=== PATIENT | female | born 2000 | race American Indian/Alaskan Native ===

== ENCOUNTER 2021-11-06 14:18 | Observation (INO) | payer MEDICAID ==
[2021-11-06] MEDS ORDERED: SODIUM CHLORIDE 0.9% 500 ML 500 ML IV ONE ×2 (14:26→16:05)
[2021-11-06] MEDS ORDERED: diphenhydrAMINE 25 MG CAP PO PRN (16:05)
[2021-11-06] MEDS ORDERED: ACETAMINOPHEN 325 MG TAB PO PRN (16:05)
[2021-11-06] MEDS ORDERED: DOCUSATE SODIUM 100 MG CAP PO PRN (16:05)
[2021-11-06] MEDS ORDERED: ONDANSETRON 4 MG/2 ML INJ IV PRN (16:05)
[2021-11-06 19:04] LABS: Hematocrit 21.3 % (30.3-42.9); Hemoglobin 6.5 gm/dl (10.1-14.3)
[2021-11-06] MEDS ORDERED: SODIUM CHLORIDE 0.9% 500 ML 500 ML ONE (21:05)
[2021-11-06] MEDS: PRENATAL VIT27-FE FUMARATE-FOLIC ACID VIT TAB PO SCH (22:38)
--- NOTE | 2021-11-06 22:43 | History and Physical Report ---
History of Present Illness Date of examination: 11/06/21 Date of admission: 11/06/21 16:05 Chief complaint: Patient to receive a blood transfusion for severe anemia. History of present illness: 21 yo, @ 30.1wks, initiated care with [facility] at 11 wks gestation. During routine 3rd trimester screening , patient was found to be severely anemic. She was then referred to hematology for further assessment and treatment and it was recommended patient receive a blood transfusion initially. Labs: O+, antibody negative; H/H: 5.9/20.2 as of 10/25/21. Past History Past Medical History: no pertinent history Past Surgical History: no surgical history Family/Genetic History: none Social history: no significant social history - Obstetrical History Expected Date of Delivery: 01/14/22 Actual Gestation: 30 Week(s) 1 Day(s) : 1 Para: 0 Hx # Term Pregnancies: 0 Number of Pregnancies: 0 Spontaneous Abortions: 0 Induced : 0 Number of Living Children: 0 Medications and Allergies Allergies Allergy/AdvReac Type Severity Reaction Status Date / Time No Known Allergies Allergy Verified 02/09/18 01:33 Home Medications Medication Instructions Recorded Confirmed Last Taken Type Docusate Sodium [Colace] 100 mg PO QDAY #30 capsule 02/12/18 Unknown Rx Ferrous Sulfate [Iron 325 MG] 325 mg PO TID #90 tablet 02/12/18 Unknown Rx medroxyPROGESTERone ACETATE 10 mg PO QDAY #10 tablet 02/12/18 Unknown Rx [Provera] Active Meds: Active Medications Acetaminophen (Acetaminophen 325 Mg Tab) 650 mg PO Q4H PRN PRN Reason: Pain MILD(1-3)/Fever >100.5/KRAMER Last Admin: 11/06/21 21:48 Dose: 650 mg Diphenhydramine HCl (Diphenhydramine 25 Mg Cap) 25 mg PO Q6H PRN PRN Reason: Itching Last Admin: 11/06/21 21:48 Dose: 25 mg Docusate Sodium (Docusate Sodium 100 Mg Cap) 100 mg PO Q12H PRN PRN Reason: Constipation Multivitamins/Iron/Calcium ( Bjy42-Gy Fumarate-Folic Acid Vit Tab) 1 each PO QDAY ASHTYN Ondansetron HCl (Ondansetron 4 Mg/2 Ml Inj) 4 mg IV Q6H PRN PRN Reason: Nausea And Vomiting - Vital Signs Vital signs: Vital Signs Temp Pulse Resp BP Pulse Ox 97.8 F 95 H 18 114/71 100 11/06/21 17:05 11/06/21 17:05 11/06/21 17:05 11/06/21 17:05 11/06/21 17:05 Temp Pulse Resp BP Pulse Ox 98.0 F 87 18 105/66 100 11/06/21 21:34 11/06/21 21:51 11/06/21 21:51 11/06/21 21:51 11/06/21 21:51 Results Result Diagrams: 11/06/21 18:19 Abnormal lab results 11/06/21 11/06/21 Range/Units 18:19 18:20 Hgb 6.5 L (10.1-14.3) gm/dl Hct 21.3 L (30.3-42.9) % Crossmatch See Detail All other labs normal. Assessment and Plan A: Severe Iron deficiency anemia, antepartum. P: Patient to be transfused with 2u PRBCs with discharge anticipated post completion, pending no complications.
[2021-11-07 08:55] LABS: Hematocrit 28.4 % (30.3-42.9); Hemoglobin 8.6 gm/dl (10.1-14.3)
[2021-11-07] MEDS: PRENATAL VIT27-FE FUMARATE-FOLIC ACID VIT TAB PO SCH (10:30)
--- NOTE | 2021-11-07 11:01 | Discharge Summary ---
Providers - Providers Date of Admission: 11/06/21 16:05 Date of discharge: 11/07/21 Attending physician: NELLY MCKEON Primary care physician: NELLY MCKEON Hospitalization Reason for admission: other (Severe Anemia) Procedure: other (Blood transfusion) Discharge diagnosis: other (IUP; anemia) Hospital course: 21 yo, @ 30.1wks, initiated care with [facility] at 11 wks gestation. During routine 3rd trimester screening , patient was found to be severely anemic. She was then referred to hematology for further assessment and treatment and it was recommended patient receive a blood transfusion. Transfusion was completed with post-transfusion Hgb of 8.6. Condition at discharge: Stable Disposition: 01 HOME / SELF CARE / HOMELESS - Discharge Diagnoses (1) Anemia Status: Acute Qualifiers: Anemia type: iron deficiency (2) 30 weeks gestation of Status: Acute Plan - Provider Discharge Summary Additional instructions: [] Smoking cessation referral if applicable(refer to patient education folder for contact #) [] Refer to [facility] Booklet Call your doctor immediately for: * Fever > 100.5 * Heavy vaginal bleeding ( >1 pad per hour) * Severe persistent headache * Shortness of breath * Reddened, hot, painful area to leg or breast * Drainage or odor from incision. * Keep incision clean and dry at all times and follow doctor's instructions regarding bathing/showering - Follow up plan Follow up: NELLY MCKEON MD [Primary Care Provider] - 14 Days
[2021-11-07 11:55] VITALS: BP 105/55
== END 2021-11-07 12:34 | disposition home or self-care (01) ==
LOC: UNDOADMOB 14:18 → 3A 14:18 → OB 16:05
PROVIDERS: ADMIT Obstetrics & Gynecology; ATTEND Obstetrics & Gynecology
DX: O99.013 Anemia complicating pregnancy, third trimester (principal); D50.9 Iron deficiency anemia, unspecified; Z3A.30 30 weeks gestation of pregnancy
CPT/HCPCS: 36415; 36430; 85014; 85018; 86850; 86900; 86901; 86920; G0378; G0379; J7040; P9016